=== PATIENT | female | born 1940 | race Caucasian/White ===

== ENCOUNTER 2017-05-14 19:34 | Emergency (ER) | payer MEDICARE, OTHER ==
[2017-05-14] MEDS ORDERED: Triamcinolone Acetonide 40 MG/ML 1 ML MDV INJECT ONE (19:58)
[2017-05-14] MEDS ORDERED: diphenhydrAMINE 25 MG Cap PO ONE (19:59)
[2017-05-14 20:11] VITALS: BP 136/67
--- NOTE | 2017-05-15 08:18 | ER ---
Date of Service: 05/14/2017 SUBJECTIVE: Corinna presents to the emergency room with complaints of insect bite to her left inner thigh. The patient states that this happened approximately 5 hours prior to arrival to the emergency room. She states that the redness and swelling was not immediately evident. She states that while she was at home, she did put her on Benadryl cream and meat tenderizer to the area of the bite. She states that she was unable to locate the stinger. She stated that over time, she developed significant large area of erythema to her left inner thigh, which is concerning. REVIEW OF SYSTEMS: General: Denies any fever or chills. HEENT: Denies any sore throat, rhinorrhea, congestion, or throat tightness. Respiratory: No shortness of breath. Cardiac: Denies any substernal chest pain. GI: No nausea, vomiting, or diarrhea. No melena, hematochezia, or hematemesis. PHYSICAL EXAMINATION: General: This is a 76-year-old female patient, in no acute distress. Vital Signs: Blood pressure is 136/67, heart rate is 63, temperature is 36.1, respiratory rate 16, O2 saturation is 98%. Skin: Warm, pink, and dry. HEENT: Mouth: Oral mucosa is moist. Lungs: Clear to auscultation. Heart: Regular rate and rhythm. Abdomen: Soft, nontender. There is no hepatosplenomegaly or masses noted. Musculoskeletal: She does have a large geographic area of urticaria to her left inner thigh. No evidence of any retained stinger. Remainder of her physical examination is within normal limits. EMERGENCY ROOM COURSE: The patient was given an injection of triamcinolone 40 mg IM and was given Benadryl 50 mg p.o. She remained stable in my care in the emergency room. ASSESSMENT: Urticaria secondary to insect bite. PLAN: The patient will be discharged. I did give her a short course of prednisone 20 mg daily for 5 days. Continue to use the ibuprofen 50 mg every 4- 6 hours as needed for itching or discomfort. All questions were answered. MWK: 05/15/2017 02:10:37 MODL: 05/15/2017 06:58:20 /[id number]
== END 2017-05-14 20:55 | disposition home or self-care (01) ==
LOC: VM.ED 19:34
DX: S70.362A Insect bite (nonvenomous), left thigh, initial encounter (principal); L50.9 Urticaria, unspecified; W57.XXXA Bitten or stung by nonvenomous insect and other nonvenomous arthropods, initial encounter
CPT/HCPCS: 96372; 99281; A9270; J3301; 99282-GF

== ENCOUNTER 2018-12-12 09:31 | Emergency (ER) | payer MEDICARE, OTHER ==
--- NOTE | 2018-12-12 10:17 | EDM.PDOC ---
ED HPI GENERAL MEDICAL PROBLEM - General Chief Complaint: Back Pain or Injury Stated Complaint: back pain Time Seen by Provider: 12/12/18 09:45 Source of Information: Reports: Patient History Limitations: Reports: No Limitations - History of Present Illness INITIAL COMMENTS - FREE TEXT/NARRATIVE: Patient comes into the emergency department with chronic low back pain. Patient has been seen by her primary care provider and also is slated to see a specialist regarding her chronic lower back pain. She recently had an MRI completed. She states that she did not discuss any pain management options with her PCP when she was at her appointment this last week. She states the pain has increased over the course of last 2-3 days. She was going to try to go to the clinic today however was unable to for the clinic was closed. She presents to the emergency department for further evaluation. She states that she has not injured her back recently. She states that the pain has been ongoing for a long period of time and describes it as a throbbing sensation and muscle spasms. She states that she does ice the area every once in a while but does not take any medications consistently to help with the pain or discomfort. Onset: Gradual Quality: Reports: Ache, Throbbing Severity: Mild Improves with: Reports: Cold Therapy, Immobilization Worsens with: Reports: Movement Associated Symptoms: Reports: No Other Symptoms - Related Data Allergies Allergy/AdvReac Type Severity Reaction Status Date / Time atorvastatin [From Lipitor] Allergy Other Verified 05/14/17 19:44 ezetimibe [From Zetia] Allergy Other Verified 05/14/17 19:44 simvastatin [From Zocor] Allergy Other Verified 05/14/17 19:44 Home Meds: Home Meds Aspirin [Halfprin] 81 mg PO DAILY 10/22/16 [History] Atenolol [Tenormin] 50 mg PO DAILY 10/22/16 [History] Calcium Carbonate/Vitamin D3 [Hm Calcium 600-Vit D3 400 Tab] 2,000 unit PO DAILY 10/22/16 [History] Cholecalciferol (Vitamin D3) [Vitamin D3] 2,000 units PO DAILY 10/22/16 [History ] Gemfibrozil [Lopid] 600 mg PO BID 10/22/16 [History] Lovastatin [Mevacor] 10 mg PO BEDTIME 10/22/16 [History] Lutein [Natural Lutein] 1 tab PO DAILY 10/22/16 [History] Multivitamin with Minerals [Multiple Vitamin] 1 tab PO BID 10/22/16 [History] Ubidecarenone [Coenzyme Q-10] 1 cap PO DAILY 10/22/16 [History] Ketorolac [Toradol] 10 mg PO TID PRN #10 tab 12/12/18 [Rx] tiZANidine [Zanaflex] 4 mg PO Q8H PRN #10 tab 12/12/18 [Rx] Past Medical History HEENT History: Reports: Other (See Below) Other HEENT History: ringing in the ears Cardiovascular History: Reports: High Cholesterol, Other (See Below) Other Cardiovascular History: palpitations. PVC Gastrointestinal History: Reports: Colon Polyp Genitourinary History: Reports: Other (See Below) Other Genitourinary History: dense breasts Musculoskeletal History: Reports: Back Pain, Chronic, Osteoarthritis Neurological History: Reports: Other (See Below) Other Neuro History: lumbar spine stenosis - Past Surgical History Neurological Surgical History: Reports: Discectomy, Other (See Below) Musculoskeletal Surgical History: Reports: Arthroscopic Knee, Joint Replacement ED ROS GENERAL - Review of Systems Review Of Systems: See Below Constitutional: Reports: No Symptoms HEENT: Reports: No Symptoms Respiratory: Reports: No Symptoms Cardiovascular: Reports: No Symptoms Endocrine: Reports: No Symptoms GI/Abdominal: Reports: No Symptoms : Reports: No Symptoms Musculoskeletal: Reports: Back Pain Skin: Reports: No Symptoms Neurological: Reports: No Symptoms Psychiatric: Reports: No Symptoms Hematologic/Lymphatic: Reports: No Symptoms Immunologic: Reports: No Symptoms ED EXAM, GENERAL - Physical Exam Exam: See Below Exam Limited By: No Limitations General Appearance: Alert, WD/WN, No Apparent Distress Respiratory/Chest: No Respiratory Distress, No Accessory Muscle Use Cardiovascular: Normal Peripheral Pulses, No Edema Back Exam: Normal Inspection, Muscle Spasm, Other (decrease ROM due to pain. No redess, swelling, warmth or ecchymosis noted. No numbness and tingling in lower extremities. CMS is intact) Neurological: Alert, Oriented Psychiatric: Normal Affect, Normal Mood Skin Exam: Warm, Dry, Intact Departure - Departure Time of Disposition: 10:15 Disposition: Home, Self-Care 01 Condition: Good Clinical Impression: Chronic back pain Qualifiers: Back pain location: low back pain Back pain laterality: unspecified Sciatica presence: without sciatica Qualified Code(s): M54.5 - Low back pain - Discharge Information *PRESCRIPTION DRUG MONITORING PROGRAM REVIEWED*: Not Applicable *COPY OF PRESCRIPTION DRUG MONITORING REPORT IN PATIENT [place]ON[place]: Not Applicable Prescriptions: Ketorolac [Toradol] 10 mg PO TID PRN #10 tab PRN Reason: Pain tiZANidine [Zanaflex] 4 mg PO Q8H PRN #10 tab PRN Reason: Pain Instructions: Back Exercises, Pain Medicine Instructions, [id number], Back Injury Prevention Forms: ED Department Discharge Additional Instructions: 1. Keep your appointment with the surgeon for longterm management options 2. Follow up with PCP next week for interm pain management options 3. Can also try massage or physical therapy while awaiting to see the surgeon 4. Take Toradol and Tizanidine as needed for pain and muscle spasm 5. Call with any questions or concerns - Assessment/Plan Assessment:: 1. Chronic lower back pain 2. Muscle spasm Plan: 1. Pt does not have a ride and she drove herself to the ER. She is currently being worked up by primary care provider as well as specialty services. We will provide a prescription for muscle relaxant and anti-inflammatory to help with the pain and discomfort for the weekend. Patient is advised to follow-up with her PCP on Friday or Friday for further pain management recommendations will she await to see the specialist. Patient is also recommended to use ice or heat to help alleviate any discomfort or pain. Patient is also advised that massage or physical therapy may help in the interim while waiting for specialty consultation. 2. All questions and concerns addressed prior to discharge
[2018-12-12 12:02] VITALS: BP 142/62
== END 2018-12-12 10:15 | disposition home or self-care (01) ==
LOC: VM.ED 09:31
DX: M62.830 Muscle spasm of back (principal); E78.00 Pure hypercholesterolemia, unspecified; Z79.82 Long term (current) use of aspirin; Z79.899 Other long term (current) drug therapy; Z88.8 Allergy status to other drugs, medicaments and biological substances
CPT/HCPCS: 99283

== ENCOUNTER 2019-07-23 21:22 | Emergency (ER) | payer MEDICARE, OTHER ==
[2019-07-23 22:02] VITALS: BP 135/78; PULSE 74
[2019-07-23 22:22] LABS: ANION GAP 14.9 mmol/L (10-20); CHLORIDE,CL 101 mmol/L (54-184); SODIUM,NA 138 mmol/L (69-191)
[2019-07-23] MEDS ORDERED: Take Home: Sulfamethoxazole/Trimethoprim 800-160 MG Tab, 2 Tab Pack PO ONE (22:29)
--- NOTE | 2019-07-23 22:35 | EDM.PDOC ---
ED HPI GENERAL MEDICAL PROBLEM - General Chief Complaint: Gastrointestinal Problem Stated Complaint: Diarrhea Time Seen by Provider: 07/23/19 21:30 Source of Information: Reports: Patient History Limitations: Reports: No Limitations - History of Present Illness INITIAL COMMENTS - FREE TEXT/NARRATIVE: Patient presents to ER with complaints of uncontrolled diarrhea for the last 2 days. Had hip replacement on the and had been doing well. Does believe that she received IV doses of antibiotics at the hospital but hasn't taken any home meds. She had been taking hydrocodone and senokot. Stopped the hydrocodone on Friday, Senokot 2 days ago. She has been eating and drinking well. Relates has had "too many loose stools to count" but only in very small amounts each time. Has had difficulty controlling them and has been incontinent. Rectal area is now very sore. She denies any fevers. No abdominal pain. No blood. Does admit that she has burning with urination now as well, feels likely due to the incontinence of her stools. Is doing very well otherwise in regards to the surgery. 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 ENGINEER: Immodium and Pepto Bismol - Related Data Allergies Allergy/AdvReac Type Severity Reaction Status Date / Time atorvastatin [From Lipitor] AdvReac Intermediate Muscle Verified 07/23/19 21:59 Aches ezetimibe [From Zetia] AdvReac Intermediate Muscle Verified 07/23/19 21:59 Aches oxycodone AdvReac Intermediate Hallucinati Verified 07/23/19 21:59 ons simvastatin [From Zocor] AdvReac Intermediate Muscle Verified 07/23/19 21:59 Aches Home Meds: Home Meds Aspirin [Halfprin] 81 mg PO DAILY 10/22/16 [History] Atenolol [Tenormin] 50 mg PO DAILY 10/22/16 [History] Calcium Carbonate/Vitamin D3 [Hm Calcium 600-Vit D3 400 Tab] 2,000 unit PO DAILY 10/22/16 [History] Cholecalciferol (Vitamin D3) [Vitamin D3] 2,000 units PO DAILY 10/22/16 [History ] Gemfibrozil [Lopid] 600 mg PO BID 10/22/16 [History] Lovastatin [Mevacor] 10 mg PO BEDTIME 10/22/16 [History] Lutein [Natural Lutein] 1 tab PO DAILY 10/22/16 [History] Multivitamin with Minerals [Multiple Vitamin] 1 tab PO BID 10/22/16 [History] Ubidecarenone [Coenzyme Q-10] 1 cap PO DAILY 10/22/16 [History] Ketorolac [Toradol] 10 mg PO TID PRN #10 tab 12/12/18 [Rx] tiZANidine [Zanaflex] 4 mg PO Q8H PRN #10 tab 12/12/18 [Rx] Past Medical History HEENT History: Reports: Other (See Below) Other HEENT History: ringing in the ears Cardiovascular History: Reports: High Cholesterol, Other (See Below) Other Cardiovascular History: palpitations. PVC Gastrointestinal History: Reports: Colon Polyp Genitourinary History: Reports: Other (See Below) Other Genitourinary History: dense breasts Musculoskeletal History: Reports: Back Pain, Chronic, Osteoarthritis Neurological History: Reports: Other (See Below) Other Neuro History: lumbar spine stenosis - Past Surgical History Neurological Surgical History: Reports: Discectomy, Other (See Below) Musculoskeletal Surgical History: Reports: Arthroscopic Knee, Joint Replacement Social & Family History - Tobacco Use Smoking Status *Q: Never Smoker ED ROS GENERAL - Review of Systems Review Of Systems: See Below Constitutional: Reports: Malaise. Denies: Fever, Chills, Weakness, Decreased Appetite HEENT: Reports: No Symptoms Respiratory: Denies: Shortness of Breath, Cough Cardiovascular: Denies: Chest Pain, Edema, Lightheadedness Endocrine: Reports: Fatigue GI/Abdominal: Reports: Diarrhea. Denies: Abdominal Pain, Decreased Appetite, Hematochezia, Melena, Mucous in Stool, Nausea, Vomiting : Reports: Dysuria, Frequency Musculoskeletal: Reports: Joint Pain Skin: Reports: Other (no redness to incision) Neurological: Reports: No Symptoms Psychiatric: Reports: No Symptoms ED EXAM, GI/ABD - Physical Exam Exam: See Below Exam Limited By: No Limitations General Appearance: Alert, WD/WN, No Apparent Distress Ears: Normal External Exam, Normal TMs Nose: Normal Inspection, Normal Mucosa, No Blood Throat/Mouth: Normal Inspection, Normal Oropharynx Head: Normocephalic Neck: Normal Inspection, Supple, Non-Tender Respiratory/Chest: No Respiratory Distress, Lungs Clear, Normal Breath Sounds Cardiovascular: Regular Rate, Rhythm GI/Abdominal Exam: Normal Bowel Sounds, Soft, Non-Tender. No: Rebound Extremities: Normal Inspection, No Pedal Edema Neurological: Alert, Oriented Skin Exam: Warm, Dry Course - Vital Signs Last Recorded V/S: Last Vital Signs Temp 96.8 F 07/23/19 22:01 Pulse 74 07/23/19 22:01 Resp 16 07/23/19 22:01 BP 135/78 07/23/19 22:01 Pulse Ox 98 07/23/19 22:01 - Orders/Labs/Meds Orders: Active Orders 24 hr Category Date Time Status CLOSTRIDIUM DIFFICILE TOX RFLX [MREF] Stat Lab 07/23/19 21:53 Received MISC TEST Routine Lab 07/23/19 21:53 Received Isolation [COMM] Stat Oth 07/23/19 21:54 Ordered Labs: Laboratory Tests 07/23/19 07/23/19 07/23/19 Range/Units 21:53 22:00 22:00 WBC 12.9 H (4.0-10.0) x10^3/uL RBC 3.98 L (4.00-5.50) x10^6/uL Hgb 12.4 (12.0-16.0) g/dL Hct 37.5 (33.0-47.0) % MCV 94.2 H (78.0-93.0) fL MCH 31.2 (26.0-32.0) pg MCHC 33.1 (32.0-36.0) g/dL RDW Coeff of Mac 12.5 (10.0-15.0) % Plt Count 344 (130-400) x10^3/uL Neut % (Auto) 67.4 (50.0-80.0) % Lymph % (Auto) 20.4 L (25.0-50.0) % [place] % (Auto) 10.9 (2.0-11.0) % Eos % (Auto) 1.1 (0.0-4.0) % Baso % (Auto) 0.2 (0.2-1.2) % Sodium 138 (69-191) mmol/L Potassium 3.9 (1.5-9.9) mmol/L Chloride 101 (54-184) mmol/L Carbon Dioxide 26 (21-32) mmol/L Anion Gap 14.9 (10-20) mmol/L BUN 18 (7-18) mg/dL Creatinine 0.9 (0.55-1.02) mg/dL Est Cr Clr Drug Dosing 37.60 mL/min Estimated GFR (MDRD) > 60 Glucose 116 H (74-106) mg/dL Calcium 9.2 (8.5-10.1) mg/dL Magnesium 2.0 (1.8-2.4) mg/dL Urine Color Yellow (YELLOW) Urine Appearance Slightly cloudy H (CLEAR) Urine pH 7.0 (5.0-8.0) Ur Specific [place] 1.010 Urine Protein 30 H (NEGATIVE) mg/dL Urine Glucose (UA) Negative (NEGATIVE) mg/dL Urine Ketones Negative (NEGATIVE) mg/dL Urine Occult Blood Small H (NEGATIVE) Urine Nitrite Negative (NEGATIVE) Urine Bilirubin Negative (NEGATIVE) Urine Urobilinogen 0.2 (0.2) EU/dL Ur Leukocyte Esterase Moderate H (NEGATIVE) Meds: Medications Discontinued Medications Generic Name Dose Route Start Last Admin Trade Name Freq PRN Reason Stop Dose Admin Trimethoprim/Sulfamethoxazole 1 packet 07/23/19 22:29 Take Home: Sulfameth/Trimet 800-160mg, 2 Pack PO 07/23/19 22:30 ONETIME ONE - Re-Assessments/Exams Free Text/Narrative Re-Assessment/Exam: 07/23/19 Labs noted, WBC mildly elevated. UA positive. C Diff collected. Discharge instructions discussed with patient and family Departure - Departure Time of Disposition: 22:36 Disposition: Home, Self-Care 01 Condition: Good Clinical Impression: Diarrhea UTI (urinary tract infection) Qualifiers: Urinary tract infection type: acute cystitis Hematuria presence: without hematuria Qualified Code(s): N30.00 - Acute cystitis without hematuria - Discharge Information *PRESCRIPTION DRUG MONITORING PROGRAM REVIEWED*: No *COPY OF PRESCRIPTION DRUG MONITORING REPORT IN PATIENT [place]ONIA: No Referrals: Tamia Hill, DO [Primary Care Provider] - Forms: ED Department Discharge Additional Instructions: 1. Push fluids 2. Take Immodium as needed, up to 4 tabs per day 3. Bactrim DS one tablet twice a day for 5 days. 4. Staff will call you if concerns with stool studies 5. Call primary care provider as needed - My Orders Last 24 Hours: My Active Orders 07/23/19 21:53 CLOSTRIDIUM DIFFICILE TOX RFLX [MREF] Stat MISC TEST Routine 07/23/19 21:54 Isolation [COMM] Stat - Assessment/Plan Last 24 Hours: My Active Orders 07/23/19 21:53 CLOSTRIDIUM DIFFICILE TOX RFLX [MREF] Stat MISC TEST Routine 07/23/19 21:54 Isolation [COMM] Stat
== END 2019-07-23 22:58 | disposition home or self-care (01) ==
LOC: VM.ED 21:22
DX: N30.00 Acute cystitis without hematuria (principal); R19.7 Diarrhea, unspecified; E78.5 Hyperlipidemia, unspecified; Z79.82 Long term (current) use of aspirin; Z79.899 Other long term (current) drug therapy; Z88.5 Allergy status to narcotic agent; Z88.8 Allergy status to other drugs, medicaments and biological substances
CPT/HCPCS: 36415; 80048; 81003; 83735; 85025; 87324; 87493; 99283; 99284-GF; A9270-GY

== ENCOUNTER 2019-10-19 07:39 | Emergency (ER) | payer MEDICARE, OTHER ==
[2019-10-19] MEDS ORDERED: Sodium Chloride 0.9% 10 ML Syringe FLUSH PRN (07:53)
--- NOTE | 2019-10-19 08:01 | EDM.PDOC ---
ED HPI GENERAL MEDICAL PROBLEM - General Chief Complaint: Syncope Time Seen by Provider: 10/19/19 07:45 Source of Information: Reports: Patient, EMS - History of Present Illness INITIAL COMMENTS - FREE TEXT/NARRATIVE: Corinna is a 79 y/o female who is brought to the ER by EMS after she fainted in the bathroom. She felt okay and had gotten up to use the bathroom and then was waiting to wash her hands and her was there at the sink and he happened to catch her when she fell. He reports she was probably out about 20 seconds. Had no inuries as her helped her to the floor. She has no complaints here in the ER and when EMS arrived she was alert and oriented and felt pretty good. - Related Data Allergies Allergy/AdvReac Type Severity Reaction Status Date / Time atorvastatin [From Lipitor] AdvReac Intermediate Muscle Verified 07/23/19 21:59 Aches ezetimibe [From Zetia] AdvReac Intermediate Muscle Verified 07/23/19 21:59 Aches oxycodone AdvReac Intermediate Hallucinati Verified 07/23/19 21:59 ons simvastatin [From Zocor] AdvReac Intermediate Muscle Verified 07/23/19 21:59 Aches Home Meds: Home Meds Aspirin [Halfprin] 81 mg PO DAILY 10/22/16 [History] Atenolol [Tenormin] 50 mg PO DAILY 10/22/16 [History] Calcium Carbonate/Vitamin D3 [Hm Calcium 600-Vit D3 400 Tab] 2,000 unit PO DAILY 10/22/16 [History] Cholecalciferol (Vitamin D3) [Vitamin D3] 2,000 units PO DAILY 10/22/16 [History ] Gemfibrozil [Lopid] 600 mg PO BID 10/22/16 [History] Lovastatin [Mevacor] 10 mg PO BEDTIME 10/22/16 [History] Lutein [Natural Lutein] 1 tab PO DAILY 10/22/16 [History] Multivitamin with Minerals [Multiple Vitamin] 1 tab PO DAILY 10/22/16 [History] Ubidecarenone [Coenzyme Q-10] 1 cap PO DAILY 10/22/16 [History] Aspirin 81 mg PO DAILY 10/19/19 [History] Atenolol [Tenormin] 25 mg PO DAILY 10/19/19 [History] Calcium Carbonate/Vitamin D3 [Calcium Carbonate/Vitamin D 600 MG-200 Unit] 1 tab PO DAILY 10/19/19 [History] Ergocalciferol (Vitamin D2) [Vitamin D2] 2,000 unit PO DAILY 10/19/19 [History] Gemfibrozil [Lopid] 600 mg PO BIDAC 10/19/19 [History] L.acidoph,Paracasei, B.lactis [Probiotic] 1 each PO DAILY 10/19/19 [History] Lovastatin 10 mg PO BEDTIME 10/19/19 [History] Multivit with Minerals/Lutein [Vision Plus Lutein Vitamin] 1 each PO DAILY 10/19 [History] Multivitamin [Multivitamins] 1 each PO DAILY 10/19/19 [History] Nitrofurantoin Monohyd/M-Cryst [Macrobid 100 mg Capsule] 100 mg PO BID 5 Days # 20 capsule 10/19/19 [Rx] Ubidecarenone [Coenzyme Q10] 10 mg PO DAILY 10/19/19 [History] Past Medical History Cardiovascular History: Reports: Arrhythmia, High Cholesterol Review of Systems - Review of Systems Review Of Systems: See Below Constitutional: Reports: No Symptoms Eyes: Reports: No Symptoms Ears: Reports: No Symptoms Nose: Reports: No Symptoms Mouth/Throat: Reports: No Symptoms Respiratory: Reports: No Symptoms Cardiovascular: Reports: No Symptoms GI/Abdominal: Reports: Other (Gas pain through the night) Genitourinary: Reports: No Symptoms Musculoskeletal: Reports: No Symptoms Skin: Reports: No Symptoms Neurological: Reports: Syncope Psychiatric: Reports: No Symptoms ED EXAM, GENERAL - Physical Exam Exam: See Below Exam Limited By: No Limitations General Appearance: Alert, WD/WN, No Apparent Distress Eye Exam: Bilateral Eye: PERRL (1mm) Ears: Normal External Exam, Normal Canal, Hearing Grossly Normal, Normal TMs Nose: Normal Inspection, Normal Mucosa, No Blood Throat/Mouth: Normal Inspection, Normal Lips, Normal Teeth, Normal Oropharynx, Normal Voice Head: Atraumatic, Normocephalic Neck: Normal Inspection, Supple, Non-Tender Respiratory/Chest: No Respiratory Distress, Lungs Clear, Normal Breath Sounds Cardiovascular: Normal Peripheral Pulses, Regular Rate, Rhythm, No Edema, No JVD , No Murmur GI/Abdominal: Normal Bowel Sounds, Soft, Non-Tender, No Organomegaly, No Distention, No Mass (Female) Exam: Deferred Rectal (Female) Exam: Deferred Back Exam: Normal Inspection, Full Range of Motion Extremities: Normal Inspection, Normal Range of Motion, Non-Tender, No Pedal Edema, Normal Capillary Refill Neurological: Alert, Oriented, CN II-XII Intact, Normal Cognition, Normal Reflexes, No Motor/Sensory Deficits Psychiatric: Normal Affect, Normal Mood Skin Exam: Warm, Dry, Intact, No Rash, Pallor (slightly pale) Lymphatic: No Adenopathy EKG INTERPRETATION EKG Date: 10/19/19 Time: 07:49 Rhythm: NSR Rate (Beats/Min): 63 Power: Normal P-Wave: Present QRS: Normal ST-T: Normal EKG Interpretation Comments: Sinus Rhythm Course - Vital Signs Text/Narrative:: The patient was seen by the [facility]. EKG and labs ordered. 0850 Labs reviewed. Will give a liter of NS and reevaluate patient in 2-3 hours. Ordered Urine Cx, plan to treat for Cystitis. 1050 Patient rested well, tolerated fluids well. Up to void once. She was given discharge instructions and sent home in stable condition. Last Recorded V/S: Last Vital Signs Temp 36.0 C 10/19/19 07:40 Pulse 64 10/19/19 10:17 Resp 14 10/19/19 10:17 BP 137/68 10/19/19 10:17 Pulse Ox 98 10/19/19 10:17 - Orders/Labs/Meds Orders: Active Orders 24 hr Category Date Time Status EKG Documentation Completion [RC] STAT Care 10/19/19 07:54 Active CULTURE URINE [RM] Stat Lab 10/19/19 08:26 Received Sodium Chloride 0.9% [Normal Saline] 1,000 ml Med 10/19/19 08:48 Active IV ONETIME Sodium Chloride 0.9% [Saline Flush] Med 10/19/19 07:53 Active 10 ml FLUSH ASDIRECTED PRN Saline Lock Insert [OM.PC] Stat Oth 10/19/19 07:54 Ordered Medication Orders Sodium Chloride (Normal Saline) 1,000 mls @ 333 mls/hr IV ONETIME ONE Stop: 10/19/19 11:48 Last Admin: 10/19/19 08:56 Dose: 333 mls/hr Sodium Chloride (Saline Flush) 10 ml FLUSH ASDIRECTED PRN PRN Reason: Keep Vein Open Labs: Laboratory Tests 10/19/19 10/19/19 10/19/19 Range/Units 08:05 08:05 08:26 WBC 10.5 H (4.0-10.0) x10^3/uL RBC 4.37 (4.00-5.50) x10^6/uL Hgb 13.1 (12.0-16.0) g/dL Hct 41.1 (33.0-47.0) % MCV 94.1 H (78.0-93.0) fL MCH 30.0 (26.0-32.0) pg MCHC 31.9 L (32.0-36.0) g/dL RDW Coeff of Mac 14.4 (10.0-15.0) % Plt Count 235 (130-400) x10^3/uL Neut % (Auto) 64.2 (50.0-80.0) % Lymph % (Auto) 24.6 L (25.0-50.0) % [place]ata[place] % (Auto) 8.8 (2.0-11.0) % Eos % (Auto) 2.1 (0.0-4.0) % Baso % (Auto) 0.3 (0.2-1.2) % Sodium 141 (136-145) mmol/L Potassium 5.2 H (3.5-5.1) mmol/L Chloride 104 (98-107) mmol/L Carbon Dioxide 27 (21-32) mmol/L Anion Gap 15.2 (10-20) mmol/L BUN 42 H (7-18) mg/dL Creatinine 0.9 (0.55-1.02) mg/dL Est Cr Clr Drug Dosing TNP Estimated GFR (MDRD) > 60 Glucose 115 H (74-106) mg/dL Calcium 10.4 H (8.5-10.1) mg/dL Corrected Calcium 11.20 H (8.5-10.1) mg/dL Total Bilirubin 0.4 (0.2-1.0) mg/dL AST 15 (15-37) U/L ALT 12 L (14-59) U/L Alkaline Phosphatase 157 H (46-116) U/L Troponin I < 0.017 (<=0.056) ng/mL Total Protein 7.7 (6.4-8.2) g/dL Albumin 3.0 L (3.4-5.0) g/dL Globulin 4.7 Albumin/Globulin Ratio 0.64 Urine Color Yellow (YELLOW) Urine Appearance Cloudy H (CLEAR) Urine pH 7.0 (5.0-8.0) Ur Specific [place] 1.020 Urine Protein Negative (NEGATIVE) mg/dL Urine Glucose (UA) Negative (NEGATIVE) mg/dL Urine Ketones Negative (NEGATIVE) mg/dL Urine Occult Blood Trace-intact H (NEGATIVE) Urine Nitrite Negative (NEGATIVE) Urine Bilirubin Negative (NEGATIVE) Urine Urobilinogen 0.2 (0.2) EU/dL Ur Leukocyte Esterase Trace H (NEGATIVE) Urine RBC 0-5 (NOT SEEN) /HPF Urine WBC 0-5 (NOT SEEN) /HPF Ur Squamous Epith Cells Rare (NEGATIVE) /HPF Amorphous Sediment Moderate Urine Bacteria Rare (NEGATIVE) /HPF Urine Mucus Rare H (NEGATIVE) /LPF Meds: Medications Generic Name Dose Route Start Last Admin Trade Name Freq PRN Reason Stop Dose Admin Sodium Chloride 1,000 mls @ 333 mls/hr 10/19/19 08:48 10/19/19 08:56 Normal Saline IV 10/19/19 11:48 333 mls/hr ONETIME ONE Administration Sodium Chloride 10 ml 10/19/19 07:53 Saline Flush FLUSH ASDIRECTED PRN Keep Vein Open Departure - Departure Time of Disposition: 10:51 Disposition: Home, Self-Care 01 Condition: Good Clinical Impression: Cystitis, Dehydration Syncope Qualifiers: Syncope type: unspecified Qualified Code(s): R55 - Syncope and collapse - Discharge Information *PRESCRIPTION DRUG MONITORING PROGRAM REVIEWED*: No *COPY OF PRESCRIPTION DRUG MONITORING REPORT IN PATIENT [place]: No Prescriptions: Nitrofurantoin Monohyd/M-Cryst [Macrobid 100 mg Capsule] 100 mg PO BID 5 Days # 20 capsule Instructions: Syncope, [id number], Dehydration, Elderly, [id number], Rehydration, Elderly, Urinary Tract Infection, Adult, [id number] Forms: ED Department Discharge Additional Instructions: Macrobid twice daily for 5 days. Encourage fluids. Return to ER if symptoms worsens or with any concerns. Follow up with Primary care Provider in 5-7 days. Sepsis Event Note - Evaluation Sepsis Screening Result: No Definite Risk - Focused Exam Vital Signs: Vital Signs Temp Pulse Resp BP Pulse Ox 10/19/19 10:17 64 14 137/68 98 10/19/19 07:40 36.0 C 61 16 140/62 98 Date Exam was Performed: 10/19/19 Time Exam was Performed: 10:50 - My Orders Last 24 Hours: My Active Orders 10/19/19 07:53 Sodium Chloride 0.9% [Saline Flush] 10 ml FLUSH ASDIRECTED PRN 10/19/19 07:54 EKG Documentation Completion [RC] STAT Saline Lock Insert [OM.PC] Stat 10/19/19 08:26 CULTURE URINE [RM] Stat 10/19/19 08:48 Sodium Chloride 0.9% [Normal Saline] 1,000 ml IV ONETIME - Assessment/Plan Last 24 Hours: My Active Orders 10/19/19 07:53 Sodium Chloride 0.9% [Saline Flush] 10 ml FLUSH ASDIRECTED PRN 10/19/19 07:54 EKG Documentation Completion [RC] STAT Saline Lock Insert [OM.PC] Stat 10/19/19 08:26 CULTURE URINE [RM] Stat 10/19/19 08:48 Sodium Chloride 0.9% [Normal Saline] 1,000 ml IV ONETIME
[2019-10-19 08:38] LABS: ANION GAP 15.2 mmol/L (10-20); CHLORIDE,CL 104 mmol/L (98-107); SODIUM,NA 141 mmol/L (136-145)
[2019-10-19] MEDS ORDERED: Sodium Chloride 0.9% 1,000 ML IV ONE (08:48)
[2019-10-19 10:18] VITALS: BP 137/68; PULSE 64
== END 2019-10-19 11:07 | disposition home or self-care (01) ==
LOC: EDUNIT# → VM.ED 07:39
DX: R55 Syncope and collapse (principal); E86.0 Dehydration; N30.90 Cystitis, unspecified without hematuria; E78.00 Pure hypercholesterolemia, unspecified; Z79.82 Long term (current) use of aspirin; Z79.899 Other long term (current) drug therapy; Z88.5 Allergy status to narcotic agent; Z88.8 Allergy status to other drugs, medicaments and biological substances
CPT/HCPCS: 36415; 80053; 81001; 84484; 85025; 87086; 93005; 93010; 96360; 96361; 99284-25; 99284-GF; J7030

== ENCOUNTER 2023-05-01 09:46 | Day surgery (SDC) | payer MEDICARE, OTHER ==
[2023-05-01] MEDS: Lactated Ringers 1,000 ML IV SCH (10:00)
[2023-05-01] MEDS ORDERED: fentaNYL 100 MCG/2 ML SDV ONE (10:39)
[2023-05-01] MEDS ORDERED: Propofol 200 MG/20 ML SDV ONE (10:39)
[2023-05-01 12:15] VITALS: BP 109/52; PULSE 60
== END 2023-05-01 12:20 | disposition home or self-care (01) ==
LOC: VM.SDS 09:46
PROVIDERS: ATTEND Family Medicine
DX: D12.2 Benign neoplasm of ascending colon (principal); D12.4 Benign neoplasm of descending colon; D12.3 Benign neoplasm of transverse colon; M81.0 Age-related osteoporosis without current pathological fracture; M87.9 Osteonecrosis, unspecified; M47.816 Spondylosis without myelopathy or radiculopathy, lumbar region; M51.36 Other intervertebral disc degeneration, lumbar region; R73.03 Prediabetes; R00.2 Palpitations; H61.21 Impacted cerumen, right ear; D64.9 Anemia, unspecified; M17.0 Bilateral primary osteoarthritis of knee; E78.5 Hyperlipidemia, unspecified; Z88.5 Allergy status to narcotic agent; Z88.8 Allergy status to other drugs, medicaments and biological substances; Z90.89 Acquired absence of other organs; Z79.899 Other long term (current) drug therapy; Z98.890 Other specified postprocedural states
CPT/HCPCS: 00812; 88305; J2704; J3010; J7120

== ENCOUNTER 2024-08-02 04:00 | Emergency (ER) | payer MEDICARE, OTHER ==
[2024-08-02 04:10] VITALS: BP 146/65; PULSE 66
[2024-08-02] MEDS: Magnesium Citrate Solution 296 ML Bottle PO ONE (05:08)
== END 2024-08-02 05:18 | disposition home or self-care (01) ==
LOC: VM.ED 04:00
DX: K59.00 Constipation, unspecified (principal); E78.00 Pure hypercholesterolemia, unspecified; M19.90 Unspecified osteoarthritis, unspecified site; Z90.49 Acquired absence of other specified parts of digestive tract; Z96.649 Presence of unspecified artificial hip joint; Z96.659 Presence of unspecified artificial knee joint; Z88.5 Allergy status to narcotic agent; Z88.8 Allergy status to other drugs, medicaments and biological substances; Z79.82 Long term (current) use of aspirin; Z79.899 Other long term (current) drug therapy
CPT/HCPCS: 74019; 99284

== ENCOUNTER 2024-08-24 09:53 | Emergency (ER) | payer MEDICARE, OTHER ==
[2024-08-24 10:15] LABS: BASOPHILS ABSOLUTE AUTO 0.1 x10^3/uL (0.0-0.2); BASOPHILS PERCENT AUTO 0.6 % (0.2-1.2); EOSINOPHILS PERCENT AUTO 0.3 % (0.0-4.0); HEMATOCRIT 42.6 % (33.0-47.0); HEMOGLOBIN 14.7 g/dL (12.0-16.0); IMMATURE GRAN ABSOLUTE AUTO 0.01 x10^3/uL (0.00-0.07); LYMPHOCYTES ABSOLUTE AUTO 2.4 x10^3/uL (1.0-4.8); LYMPHOCYTES PERCENT AUTO 24.4 % (25.0-50.0); MEAN CORPUSCULAR HGB CONC 34.5 g/dL (32.0-36.0); MEAN CORPUSCULAR VOLUME 95.5 fL (78.0-93.0); MONOCYTES ABSOLUTE AUTO 0.5 x10^3/uL (0.0-0.8); MONOCYTES PERCENT AUTO 5.2 % (2.0-11.0); NEUTROPHILS ABSOLUTE AUTO 6.9 x10^3/uL (1.8-7.7); NEUTROPHILS PERCENT AUTO 69.4 % (50.0-80.0); PLATELET COUNT,PLT 157 x10^3/uL (130-400); RED BLOOD CELL COUNT 4.46 x10^6/uL (4.00-5.50); WHITE BLOOD CELL COUNT,WBC 9.9 x10^3/uL (4.0-10.0)
[2024-08-24 10:38] LABS: A/G RATIO 0.8; ALBUMIN 3.3 g/dL (3.4-5.0); BILIRUBIN TOTAL 1.4 mg/dL (0.2-1.0); CALCIUM 9.7 mg/dL (8.5-10.1); EST CRCL DRUG DOSING (CG) 34.62 mL/min; POTASSIUM,K 4.5 mmol/L (3.5-5.1); PROTEIN TOTAL,TP 7.4 g/dL (6.4-8.2)
[2024-08-24 10:39] LABS: ANION GAP 14.5 mmol/L (5-15)
[2024-08-24 10:42] LABS: CREATININE 0.7 mg/dL (0.55-1.02)
[2024-08-24 10:48] LABS: APPEARANCE,URINE CLEAR (CLEAR); BILIRUBIN,URINE NEGATIVE (NEGATIVE); COLOR,URINE YELLOW (YELLOW); GLUCOSE,URINE NEGATIVE (NEGATIVE); KETONES,URINE NEGATIVE (NEGATIVE); LEUKOCYTE ESTERASE,URINE NEGATIVE (NEGATIVE); NITRITE,URINE NEGATIVE (NEGATIVE); OCCULT BLOOD,URINE TRACE-INTACT (NEGATIVE); PH,URINE 5.5 (5.0-8.0); PROTEIN,URINE NEGATIVE (NEGATIVE); UROBILINOGEN,URINE 0.2 EU/dL (0.2)
[2024-08-24 10:54] LABS: RBC,URINE 0-5 /HPF (NOT SEEN); SQUAMOUS EPITHELIAL CELLS,UR OCCASIONAL /HPF (NOT SEEN); WBC,URINE 0-5 /HPF (NOT SEEN)
[2024-08-24 10:55] LABS: AMORPHOUS SEDIMENT,URINE NOT SEEN; BACTERIA,URINE NOT SEEN /HPF (NOT SEEN); MUCUS,URINE NOT SEEN /LPF (NOT SEEN)
[2024-08-24] MEDS: Iopamidol 612 MG/ML 100 ML Bottle IVPUSH ONE (11:30)
[2024-08-24] MEDS: fentaNYL 50 MCG/ML SDV IVPUSH ONE (13:37)
[2024-08-24 13:56] VITALS: BP 125/61; PULSE 58
== END 2024-08-24 14:02 | disposition short-term general hospital (02) ==
LOC: VM.ED 09:53
DX: K83.8 Other specified diseases of biliary tract (principal); E80.7 Disorder of bilirubin metabolism, unspecified; E78.00 Pure hypercholesterolemia, unspecified; Z90.49 Acquired absence of other specified parts of digestive tract; Z79.82 Long term (current) use of aspirin; Z79.899 Other long term (current) drug therapy; Z88.8 Allergy status to other drugs, medicaments and biological substances; Z88.5 Allergy status to narcotic agent
CPT/HCPCS: 36415; 74177; 80053; 81001; 83605; 83690; 84484; 85025; 93005; 93010; 96374; 99284; 99285-25; J3010; Q9967

== ENCOUNTER 2025-08-25 06:05 | Emergency (ER) | payer MEDICARE, OTHER ==
[2025-08-25 06:31] VITALS: BP 168/77; PULSE 55
== END 2025-08-25 06:53 | disposition home or self-care (01) ==
LOC: VM.ED 06:05
DX: M43.6 Torticollis (principal); E78.00 Pure hypercholesterolemia, unspecified; Z90.49 Acquired absence of other specified parts of digestive tract; Z79.899 Other long term (current) drug therapy; Z88.5 Allergy status to narcotic agent; Z88.8 Allergy status to other drugs, medicaments and biological substances
CPT/HCPCS: 99283; A9270